=== PATIENT | female | born 1960 | race Caucasian/White ===

== ENCOUNTER → 2020-09-17 14:43 | Outpatient (CLI) | payer OTHER, SELFPAY ==
--- NOTE | ~2020-09-17 | US_ITS ---
EXAMINATION: US pelvic complete w TV DATE: 09/17/2020 15:09 INDICATION: Ovarian cysts. Postmenopausal. Comparison:Ovarian cyst. TECHNIQUE: Multiple transabdominal and endovaginal sonographic images of the pelvis performed. FINDINGS: The uterus measures 7.9 x 3.1 x 4.1 cm. The endometrial complex measures 7 mm. The right ovary is not visualized. The left ovary contains a left ovarian cysts measuring up to 6.0 a nd 5.8 cm maximum dimension. There is no free fluid in the pelvis. There are no abnormal masses seen on either side. IMPRESSION: 1. . Thickened endomtrial complex. The differential diagnosis includes endometrial hyperplasia, polyp and carcinoma. Biopsy is recommended. 2: Prominent left ovarian cysts. In a postmenopausal female consider cystadenoma/cystadenocarcinoma. Reviewed, dictated and finalized at location B. ERIST IMPRESSION: 1. . Thickened endomtrial complex. The differential diagnosis includes endometr ial hyperplasia, polyp and carcinoma. Biopsy is recommended. 2: Prominent left ovarian cysts. In a postmenopausal female consider cystadenom a/cystadenocarcinoma.
== END ==
PROVIDERS: PCP Internal Medicine; Visit Provider Student in an Organized Health Care Education/Training Program
DX: N83.202 Unspecified ovarian cyst, left side (principal)
CPT/HCPCS: 76830; 76856

== ENCOUNTER 2020-10-04 00:55 | Day surgery (SDC) | payer OTHER, SELFPAY ==
[2020-09-27 17:43] VITALS: BMI 31.2
--- NOTE | 2020-10-03 15:31 | PM.IMHP ---
H&P: HPI History of Present Illness Date/Time: 10/03/20 15:31 Patient is a 59yo postmenopausal woman who presented to gynecology office earlier this month for evaluation of ovarian cysts. Patient had a previously known history of left ovarian cysts for the past 20 years. She stated that these cysts have been followed over time with imaging however, have increased slightly in size and are now causing symptoms. Patient states that cysts are impinging upon the rectum causing increased rectal pressure as well as incomplete emptying sensation. Patient denies significant pelvic pain and states that she has a uncomfortable feeling that she has tolerated for several years. Patient reports occasional urge and stress incontinence. Denies any unusual vaginal bleeding or discharge. Patient had a CT scan in June 2020. Recent pelvic ultrasound this month showed two left ovarian cysts measuring 6.0 cm and 5.8cm. Incidentally, a thickened endometrial stripe was also noted 7mm. CA-125 was obtained and within normal limits. An in-office EMB was also performed showing a scant amount of tubal metaplasia. Menopause was 7 yrs ago. Last pap smear was in January 2020 and was within normal limits. Patient denies any family history of any gynecologic cancers. She is a former smoker and stopped approximately 8 years ago. Chief Complaint: Ovarian cysts Thickened endometrium Narrative: Michelle Vallejo is a 59 year old female Review of Systems Review of Systems: All systems reviewed & are unremarkable except as noted in HPI and below Constitutional: Constitutional: Reports as per HPI, Reports no additional constitutional complaints, Denies chills, Denies fever(s), Denies headache(s) and Denies night sweats Eyes: Eyes: Reports as per HPI and Reports no additional eye complaints ENT: Reports system reviewed and no additional complaints, except as documented, Reports as per HPI, Reports Normal hearing present and Denies headache(s) Cardiovascular: Cardiovascular: Reports as per HPI, Reports no additional cardiovascular complaints, Denies chest pain and Denies dyspnea Respiratory: Respiratory: Reports as per HPI, Reports no additional respiratory complaints, Denies cough and Denies dyspnea Gastrointestinal: Gastrointestinal: Reports as per HPI, Reports no additional gastrointestinal complaints, Denies abdominal pain, Denies change in bowel habits, Denies change in stool character, Denies nausea and Denies vomiting Genitourinary: Genitourinary: Reports no additional female genitourinary complaints, Reports as per HPI, Denies abnormal vaginal bleeding, Denies genital lesions, Denies hot flashes, Denies dyspareunia, Denies pelvic pain, Denies sexual dysfunction, Denies urinary incontinence, Denies vaginal discharge, Denies vaginal dryness, Denies vaginal odor and Reports other (rectal pressure) Musculoskeletal: Musculoskeletal: Reports no additional musculoskeletal complaints and Reports as per HPI Integumentary/Breasts: Skin/Breast: Reports system reviewed and no additional complaints, except as docu, Reports as per HPI, Denies breast pain and Denies nipple discharge Neurologic: Reports system reviewed and no additional complaints, except as documented, Reports as per HPI, Reports Normal hearing present and Denies headache(s) Psychiatric: Psychiatric: Reports no additional psychiatric complaints, Reports as per HPI, Denies anxiety and Denies depression Endocrine: Endocrine: Reports no additional endocrine complaints and Reports as per HPI Hematologic/Lymphatic: Hematologic/Lymphatic: Reports no additional hematologic/lymphatic complaints and Reports as per HPI Allergic/Immunologic: Allergic/Immunologic: Reports no additional allergic/immunologic complaints and Reports as per HPI PMFSH Past Medical History Medical History Acid reflux History of vaginal delivery x 3 Hyperlipidemia Hypothyroidism Surgical His
[2020-10-04] VITALS (10 sets, daily range): BP systolic 115–151; BP diastolic 75–91; PULSE 80–100; RESP 10–20; TEMP 36.6–36.8; O2SAT 89–100
--- NOTE | 2020-10-04 06:08 | ECG_ITS ---
Measurements Intervals [place] Rate: 83 P: 32 NV: 121 QRS: 15 QRSD: 89 T: 30 QT: 391 QTc: 461 Interpretive Statements SINUS RHYTHM BASELINE ARTIFACT- II, III ,AVF NORMAL ECG Electronically Signed On 10-04-2020 8:04:10 CHIEF CREDIT OFFICER by Arsenio Browning D.O.
[2020-10-04] MEDS: ACETAMINOPHEN 500 MG TABLET 1000 MG PO (06:44)
--- NOTE | 2020-10-04 07:00 | WPDANESEPPF ---
Anes - Initial Pre Proc Eval Procedure: Operation Date: 10/04/20 08:30 Proposed Procedures p Laparoscopic Bilateral Salpingo-Oophorectomy - Jayshree Avilze MD s Hysteroscopy, Dilation and Curettage, Possible Myosure - Jayshree Avilez MD Date/Time: 10/04/20 07:00 Surgeon: Jayshere Avilez MD Pre Op Diagnosis: Ovarian Cyst Patient Data Age: 59 Gender: F Height: 5 ft Weight: 72.57 kg Allergies Allergy/AdvReac Type Severity Reaction Status Date / Time SULFA Allergy Severe Juandice Uncoded 10/04/20 06:51 Home Medications Medication Instructions Recorded Confirmed Type cholecalciferol (vitamin D3) 125 125 mcg PO DAILY 09/12/20 10/04/20 History mcg (5,000 unit) capsule cyclobenzaprine 7.5 mg tablet 7.5 mg PO ONCE PRN tablet 09/12/20 10/04/20 History escitalopram oxalate 10 mg tablet 10 mg PO DAILY 09/12/20 10/04/20 History omeprazole 20 mg capsule,delayed 20 mg PO DAILY 09/12/20 10/04/20 History release rosuvastatin 10 mg tablet 10 mg PO DAILY 09/12/20 10/04/20 History thyroid (pork) 60 mg tablet 60 mg PO DAILY 09/12/20 10/04/20 History Patient hx anesthesia problems: none Family hx anesthesia problems: none PMFSH Past Medical History Medical History Acid reflux History of vaginal delivery x 3 Hyperlipidemia Hypothyroidism Surgical History Surgical History H/O breast augmentation 2003 H/O colonoscopy 2018 H/O tubal ligation 1984 History of bladder surgery as a child Family History Family History Sibling Blood clot in vein Mother Acute myocardial infarction Social History Social History Smoking packs per day: 0.5 Smoking cigarettes per day: 10.0 Years smoked: 35 Smoking pack-years: 17.50 Smoking status: Former smoker Alcohol intake: never Substance use: never Last use: 2013 Living arrangements: with family Gender identity (if verbalized by the patient): Female Spiritual care concerns: No Anes - Eval Final PreProcedure Day of Procedure 10/04/20 07:00 Patient weight: overweight Heart: regular rate and rhythm Airway: Mallampati scale class II Neurological: alert and oriented Last oral intake: >/= 8 hours ASA classification: III Emergent: no Anesthetic plan: proceed Anesthesia type and monitoring: general ETT and standard monitoring Informed Consent: The patient's anesthetic plan and its attendant risks and benefits were discussed with the patient/family/POA. Questions were solicited and answers provided to the satisfaction of the patient/family/POA.
[2020-10-04] MEDS: LACTATED RINGERS 1,000 ML 30 ML IV CONT ×2 (07:04→09:46)
[2020-10-04] MEDS: KETOROLAC 15 MG/ML VIAL (*BKC) IV PUSH (07:08)
--- NOTE | 2020-10-04 07:11 | WPDHPUPDATE1 ---
History and Physical Update Update Date/Time: 10/04/20 07:11 History and Physical has been reviewed, including an updated exam of the patient. There are NO changes in the patient's condition. Risks, benefits, and alternatives have been discussed and questions answered. Patient agrees to proceed with procedure.
--- NOTE | 2020-10-04 07:22 | PM.PROC ---
Procedure Note - Detailed Date of procedure: 10/04/20 Pre-op diagnosis: Ovarian Cyst Left ovarian cysts Thickened endometrium Post-op diagnosis: same Procedure performed: Hysteroscopy Dilation and curettage Excision of endometrial tissue with MyoSure Laparoscopic bilateral salpingo-oophorectomy Description of procedure: The patient was taken to the operating room where she self transferred to the operating room table. She was placed in dorsal supine position. General anesthesia was administered and found to be adequate. The patient was repositioned in dorsal lithotomy position with the use of Quentin stirrups. She was prepped and draped in the usual sterile fashion. A red rubber catheter was used to drain the bladder of 50cc clear urine. A bivalve speculum was inserted into the vagina. The cervix was well visualized. The anterior lip of the cervix was grasped with a single-tooth tenaculum. A paracervical block was performed with a total of 10 cc of 1% plain lidocaine. 5 cc of lidocaine was administered on either side of the cervix. The cervix was serially dilated to accommodate a hysteroscope. The hysteroscope was advanced into the endometrial cavity. On inspection, a small-medium sized blood clot adherent to a piece of tissue was noted near the right cornua obscuring the right tubal ostium. The left tubal ostium was visualized and the remainder of the endometrial cavity appeared normal with no other abnormalities noted. The hysteroscope was removed. A medium-size rigid curette was then introduced into the endometrial cavity. All quadrants of the endometrium were explored. The blood clot and a minimal amount of tissue was obtained. The hysteroscope was reintroduced into the endometrial cavity. The same piece of tissue, possibly a polyp, was still visualized near the right cornua. Decision was made to convert to an operative hysteroscope. An operative hysteroscope was introduced into endometrial cavity and with the use of the MyoSure device, this piece of tissue was excised and evacuated from the endometrial cavity. The right tubal ostium was then visualized. Several photographs were taking during this portion of the procedure and endometrial cavity appeared clear. This portion of the procedure was deemed complete. The hysteroscope was removed. Specimen was prepared to be sent to pathology for analysis. A HUMI uterine manipulator was then inserted into the uterus and insufflated for use during the laparoscopic portion of the case. The tenaculum and speculum were removed. The numerical control operator's gown and gloves were changed and attention was turned to the patient's abdomen. An infraumbilical skin incision was made with a scalpel. With the abdomen tented up, a Veress needle was inserted into the abdominal cavity. Intra-abdominal placement was confirmed with saline. Carbon dioxide tubing was connected to the Veress needle and insufflation was begun. When adequate pneumoperitoneum was achieved, the Veress needle was removed and a 5 mm Optiview trocar was inserted under direct visualization. The patient was placed in Trendelenburg position for enhanced visualization. A pelvic survey was attempted, however, due to limited visualization, decision was made to proceed with placement of two accessory trocars, one in the right lower quadrant and the other in the left lower quadrant. A 5 mm skin incision was made in the right lower quadrant and a 5 mm trocar was introduced under direct visualization. Similarly, a 10 mm trocar was inserted in the left lower quadrant also under direct visualization. With the use of a blunt probe and atraumatic grasper, the pelvic structures were carefully evaluated. The uterus appeared grossly normal as did the right fallopian tube and right ovary. A very large left ovarian cyst was noted with the left fallopian tube adherent to the external surface of the cyst. Upon further evaluation, a second adjacent, attached large cyst was noted deep in the post
[2020-10-04] MEDS: fentaNYL CITRATE INJ (*CRX) 100 MCG/2 ML VIAL 25 MCG IV PUSH (10:25)
[2020-10-04] MEDS: PROPARACAINE HCL 0.5% 15 ML OPHTH SOLN 1 DROP EACH EYE (12:00)
--- NOTE | 2020-10-04 15:31 | SUR.PHASEII ---
1155 PT C/O LT EYE PAIN- DR GALDAMEZ'S AWARE & ANESTHESIA EYE PROTOCOL ORDERED. 1215 PT STATES HER LT EYE FEELS MUCH BETTER .
== END 2020-10-04 12:20 | disposition home or self-care (01) ==
PROVIDERS: PCP Internal Medicine; Visit Provider Student in an Organized Health Care Education/Training Program
PROC: (CPT 49320; principal; 2020-10-04 08:30)
PROC: 0U5B8ZZ Destruction of Endometrium, Via Natural or Artificial Opening Endoscopic (ICD-10-PCS; CPT 58563; 2020-10-04 08:30)
DX: N83.201 Unspecified ovarian cyst, right side (principal); D27.1 Benign neoplasm of left ovary; E78.5 Hyperlipidemia, unspecified; E20.9 Hypoparathyroidism, unspecified; Z87.891 Personal history of nicotine dependence; R93.89 Abnormal findings on diagnostic imaging of other specified body structures; K21.9 Gastro-esophageal reflux disease without esophagitis
CPT/HCPCS: 58558; 58661; 88305; 93005; A9270; C9290; J0330; J1100; J1885; J2250; J2405; J2704; J2710; J3010; J7030; J7120

== ENCOUNTER 2022-11-03 01:27 | Day surgery (SDC) | payer OTHER, SELFPAY ==
[2022-10-23 09:52] VITALS: BMI 30.3
[2022-11-03 08:25] VITALS: BP 148/84; PULSE 96; RESP 20; TEMP 36.6; O2SAT 97; BMI 30.4
[2022-11-03] MEDS: LACTATED RINGERS 1,000 ML 150 ML IV CONT (08:31)
--- NOTE | 2022-11-03 08:44 | WPDHPUPDATE1 ---
History and Physical Update Update Date/Time: 11/03/22 08:44 History and Physical has been reviewed, including an updated exam of the patient. There are NO changes in the patient's condition. Risks, benefits, and alternatives have been discussed and questions answered. Patient agrees to proceed with procedure.
--- NOTE | 2022-11-03 09:00 | WPDANESEPPF ---
Anes - Initial Pre Proc Eval Procedure: Operation Date: 11/03/22 09:30 Proposed Procedures p Colonoscopy - Trung Cohen MD Date/Time: 11/03/22 09:00 Surgeon: Trung Cohen MD Pre Op Diagnosis: diarrhea, abdom.pain, hematochezia,other fecal Patient Data Age: 61 Gender: F Height: 1.52 m Weight: 70.6 kg Last Vital Signs Temp 97.8 F 11/03/22 08:25 Pulse 96 11/03/22 08:25 Resp 20 11/03/22 08:25 BP 148/84 H 11/03/22 08:25 Pulse Ox 97 11/03/22 08:25 O2 Del Method Room Air 11/03/22 08:25 Allergies Allergy/AdvReac Type Severity Reaction Status Date / Time Sulfa (Sulfonamide Allergy Severe JAUNDICE Verified 11/03/22 08:23 Antibiotics) Home Medications Medication Instructions Recorded Confirmed Type cholecalciferol (vitamin D3) 125 125 mcg PO DAILY 09/12/20 10/23/22 History mcg (5,000 unit) capsule escitalopram oxalate 10 mg tablet 10 mg PO DAILY 09/12/20 10/23/22 History (Lexapro) omeprazole 20 mg capsule,delayed 20 mg PO DAILY 09/12/20 10/23/22 History release rosuvastatin 10 mg tablet (Crestor) 10 mg PO DAILY 09/12/20 10/23/22 History thyroid (pork) 60 mg tablet 60 mg PO DAILY 09/12/20 10/23/22 History (Kennard Thyroid) sodium,potassium,mag sulfates 17.5 See Rx Instructions PO .COMPLEX 10/15/22 10/23/22 Rx gram-3.13 gram-1.6 gram oral soln #354 mL (Suprep Bowel Prep Kit) Patient hx anesthesia problems: none Family hx anesthesia problems: none Results Review: All pre-operative results and documents have been reviewed as part of the pre-operative evaluation. [facility] Past Medical History Medical History (Updated 10/14/22 @ 10:02 by Leeann Page APRN) Abdominal cramping Acid reflux Diarrhea Hematochezia History of colitis History of vaginal delivery x 3 Hyperlipidemia Hypothyroidism LLQ abdominal tenderness Mucus in stool Obesity (BMI 30.0-34.9) Rectal pressure Status post hysteroscopy Tenesmus (rectal) Surgical History Surgical History H/O bilateral salpingectomy H/O breast augmentation 2003 H/O colonoscopy 2018 H/O tubal ligation 1984 History of bladder surgery as a child S/P dilation and curettage S/P oophorectomy bilateral Family History Family History Sibling Blood clot in vein Mother Acute myocardial infarction Social History Social History Smoking packs per day: 0.5 Smoking cigarettes per day: 10.0 Years smoked: 35 Smoking pack-years: 17.50 Smoking status: Former smoker Tobacco type: cigarettes Alcohol intake: never Substance use: never Substance use type: does not use Last use: 2013 Living arrangements: with family Gender identity (if verbalized by the patient): Female Spiritual care concerns: No Anes - Eval Final PreProcedure Day of Procedure 11/03/22 09:00 Patient weight: obese Heart: regular rate and rhythm Lungs: clear to auscultation Airway: Mallampati scale class II Neurological: alert and oriented Last oral intake: >/= 8 hours ASA classification: III Emergent: no Anesthetic plan: proceed Anesthesia type and monitoring: general GIVS and standard monitoring Results Review: All pre-operative results and documents have been reviewed as part of the pre-operative evaluation. Informed Consent: The patient's anesthetic plan and its attendant risks and benefits were discussed with the patient/family/POA. Questions were solicited and answers provided to the satisfaction of the patient/family/POA.
[2022-11-03 10:04] VITALS: BP 119/80; PULSE 85; RESP 17; O2SAT 100
[2022-11-03 10:14] VITALS: BP 120/78; PULSE 83; RESP 19; O2SAT 98
[2022-11-03 10:24] VITALS: BP 138/79; PULSE 79; RESP 20; O2SAT 99
== END 2022-11-03 10:35 | disposition home or self-care (01) ==
PROVIDERS: PCP Internal Medicine; Visit Provider Internal Medicine Gastroenterology
PROC: 0DJD8ZZ Inspection of Lower Intestinal Tract, Via Natural or Artificial Opening Endoscopic (ICD-10-PCS; CPT 45378; principal; 2022-11-03 09:30)
DX: K58.0 Irritable bowel syndrome with diarrhea (principal); D12.5 Benign neoplasm of sigmoid colon; K57.30 Diverticulosis of large intestine without perforation or abscess without bleeding; K64.8 Other hemorrhoids; K21.9 Gastro-esophageal reflux disease without esophagitis; E78.5 Hyperlipidemia, unspecified; E03.9 Hypothyroidism, unspecified; E66.9 Obesity, unspecified; Z68.30 Body mass index [BMI] 30.0-30.9, adult; Z87.891 Personal history of nicotine dependence
CPT/HCPCS: 45385; 45380; 88305; J2704; J7120